=== PATIENT | male | born 1950 | race Caucasian/White ===

== ENCOUNTER 2021-11-07 19:42 | Emergency (ER) | payer MEDICARE, OTHER ==
[~2021-11-07] VITALS: Ht 170.2 cm; Wt 115.7 kg
[~2021-11-07 19:42] MED LIST: ASPIR 8181 MG PO; HUMULIN R100 UNIT/2; KEFLEX500 MG PO; TYLENOL WITH C1 EACH PO
== END 2021-11-07 21:35 | disposition home or self-care (01) ==
LOC: FSED 19:57
DX: R55 Syncope and collapse (principal); N28.9 Disorder of kidney and ureter, unspecified; G47.419 Narcolepsy without cataplexy; R94.31 Abnormal electrocardiogram [ECG] [EKG]
CPT/HCPCS: 80053; 85025; 93005; 99283

== ENCOUNTER 2024-11-29 23:52 | Emergency (ER) | payer MEDICARE ==
[~2024-11-29] VITALS: Ht 167.6 cm; Wt 108.9 kg
[~2024-11-29 23:52] MED LIST changes: +ALLEGRA ALLERGY60 MG PO; +ATORVASTATIN CA20 MG PO; +BACLOFEN10 MG PO; +BASAGLAR K100 UNIT/1 SQ; +CEFDINIR300 MG PO; +COREG6.25 MG PO; +D3-5000125 MCG; +FEROSUL325 MG PO; +FLONASE ALLERG9.9 ML INH; +FUROSEMIDE40 MG PO; +GABAPENTIN600 MG PO; +JARDIANCE10 MG; +LOSARTAN-HCTZ1 EAC2; +MODAFINIL100 MG PO; +MULTI-VITAMIN1 EACH PO; +NEURONTIN300 MG PO; +NOVOLOG100 UNIT/1 SC; +OMEGA 3 1,0001 EACH PO; +OXYBUTYNIN CHLOR5 MG PO; +ROPINIROLE HCL1 MG PO; +TRICOR145 MG PO; +TRULICITY1.5 MG/0.5
[2024-11-30 00:21] LABS: BASOPHILS % 0.1 % (0.0-1.0); EOSINOPHILS % 1.0 % (0.0-6.0); LYMPHOCYTES % 16.2 % (18.0-39.1); MONOCYTES % 11.2 % (4.4-11.3); NEUTROPHILS % 71.1 % (38.7-80.0); RED CELL DISTRIBUTION WIDTH 13.5 % (11.7-14.4)
[2024-11-30] MEDS: DEXTROSE 5%/0.45% SOD CHL 1,000 ML IV ONE (00:26)
[2024-11-30 00:30] VITALS: TEMP 98.1
[2024-11-30 00:45] LABS: EST GLOMERULAR FILTRATION RATE 46.0 ML/MIN (>=60)
[2024-11-30 04:00] VITALS: PULSE 95; RESP 15
[2024-11-30 05:43] VITALS: BP 152/90; PULSE 78; RESP 11; TEMP 98.2; O2SAT 96
== END 2024-11-30 05:40 | disposition home or self-care (01) ==
LOC: ER 11-30 00:09
DX: E11.649 Type 2 diabetes mellitus with hypoglycemia without coma (principal); I10 Essential (primary) hypertension; I25.10 Atherosclerotic heart disease of native coronary artery without angina pectoris; I50.9 Heart failure, unspecified; E78.5 Hyperlipidemia, unspecified; M54.9 Dorsalgia, unspecified; G89.29 Other chronic pain; I12.9 Hypertensive chronic kidney disease with stage 1 through stage 4 chronic kidney disease, or unspecified chronic kidney disease; E11.22 Type 2 diabetes mellitus with diabetic chronic kidney disease; E11.65 Type 2 diabetes mellitus with hyperglycemia; N18.9 Chronic kidney disease, unspecified; G47.30 Sleep apnea, unspecified
CPT/HCPCS: 36415; 70450; 72125; 72128; 72131; 80053; 82948; 83690; 85025; 99284